=== PATIENT | male | born 2000 | race Two or more races ===

== ENCOUNTER 2025-04-17 09:47 | Emergency (ER) | payer MEDICAID, SELFPAY ==
[2025-04-17 09:47] VITALS: BMI 31.7
[2025-04-17 09:57] VITALS: BP 161/83; PULSE 61; RESP 16; TEMP 37.1; O2SAT 98; BMI 29.9
--- NOTE | 2025-04-17 10:42 | EDNOTE_ITS ---
ED Wound/Laceration-RME/HPI General Chief Complaint: Wound/Laceration Stated Complaint: CUT ON L HAND SINCE YESTERDAY Time Seen by Provider: 04/17/25 09:54 Source: patient Arrival date/time: 04/17/25 09:47 24-year-old male with no known medical history presents to the emergency room with a chief complaint of a laceration to his left hand that occurred yesterday afternoon. Mode of arrival: ambulatory Limitations: no limitations Related Data Allergies Allergy/AdvReac Type Severity Reaction Status Date / Time NKA Allergy Unknown Uncoded 04/17/25 09:50 No Known Allergies Allergy Uncoded 04/17/25 09:50 Review of Systems Review of Systems Systems Reviewed: All systems reviewed, normal except as documented Constitutional Constitutional: Reports system reviewed and no additional complaints, except as documented, Denies fatigue, Denies fever(s), Denies headache(s) and Denies weakness Eyes Eyes: Reports system reviewed and no additional complaints, except as documented, Denies blurry vision and Denies change in vision ENT Ears, Nose, Mouth, and Throat: Reports system reviewed and no additional complaints, except as documented, Denies otalgia, Denies headache(s), Denies nasal congestion, Denies throat swelling and Denies vertigo Cardiovascular Cardiovascular: Reports system reviewed and no additional complaints, except as documented, Denies chest pain, Denies dyspnea and Denies dyspnea on exertion Respiratory Respiratory: Reports system reviewed and no additional complaints, except as documented, Denies chest congestion, Denies cough, Denies dyspnea, Denies dyspnea on exertion and Denies wheezing Gastrointestinal Gastrointestinal: Reports system reviewed and no additional complaints, except as documented, Denies abdominal pain, Denies cramping, Denies nausea and Denies vomiting Genitourinary Genitourinary: Reports system reviewed and no additional complaints, except as documented, Denies dysuria and Denies hematuria Musculoskeletal Musculoskeletal: Reports system reviewed and no additional complaints, except as documented and Denies back pain Integumentary/Breasts Skin/Breast: Reports system reviewed and no additional complaints, except as documented and Reports wounds Neurologic Neurologic: Reports system reviewed and no additional complaints, except as documented, Denies confusion, Denies headache(s), Denies lack of coordination, Denies vertigo and Denies weakness Psychiatric Psychiatric: Reports system reviewed and no additional complaints, except as documented, Denies anxiety, Denies confusion, Denies depression, Denies paranoia, Denies suicidal ideation and Denies tactile hallucinations Endocrine Endocrine: Reports system reviewed and no additional complaints, except as documented and Denies fatigue Hematologic/Lymphatic Hematologic/Lymphatic: Reports system reviewed and no additional complaints, except as documented and Denies lymphadenopathy Allergic/Immunologic Allergic/Immunologic: Reports system reviewed and no additional complaints, except as documented, Denies throat swelling, Denies urticaria and Denies wheezing Past Medical History Social History SMOKING STATUS: Never smoker ED Exam General Limitations: Present no limitations General appearance: Present alert and in no apparent distress Head Head exam: Present atraumatic Eye Eye exam: Present normal appearance, PERRL and EOMI ENT ENT exam: Present normal exam, normal oropharynx and mucous membranes moist Neck Neck exam: Present normal inspection, full ROM and trachea midline Chest Chest inspection: Present normal inspection and symmetric chest wall rise Respiratory Respiratory exam: Present normal lung sounds bilaterally Cardiovascular Cardiovascular exam: Present regular rate, normal rhythm and normal heart sounds Abdominal Exam Abdominal exam: Present soft and normal bowel sounds Extremities Exam Extremities exam: Present normal inspection and full ROM Expanded Upper Extremity Exam Shoulder exam: Present normal inspection Arm exam: Present normal inspection Elbow exam: Present normal inspection Forearm/Wrist exam: Present normal inspection Hand exam: Present laceration Hand L/R back image: 2 1. 0.5 cm superficial laceration Vascular exam: Normal capillary refill Back Exam Back exam: Present normal inspection and full ROM Neurological Exam Neurological exam: Present alert, oriented X3 and CN II-XII intact Psychiatric Psychiatric exam: Present normal affect and normal mood Skin Skin exam: Present warm, dry, intact and normal color Course Quality Measures none Vital Signs Vital signs: Vital Signs Temperature 98.8 F 04/17/25 09:57 Pulse Rate 61 04/17/25 09:57 Respiratory Rate 16 04/17/25 09:57 Blood Pressure 161/83 H 04/17/25 09:57 Pulse Oximetry (%) 98 04/17/25 09:57 Oxygen Delivery Method Room Air 04/17/25 09:57 Wound / Laceration MDM Narrative MDM Narrative:: 24-year-old male with no known medical history presents to the emergency room with a chief complaint of a laceration to his left hand that occurred yesterday afternoon. Patient is hemodynamically stable and in no apparent distress Physical examination shows 0.5 cm laceration to the left hand between the 1st and 2nd digit. The wound is very superficial and does not need sutures. The wound was closed and approximated with Dermabond and Steri-Strips. This injury occurred yesterday around 8 PM. The wound is not erythemic there is no discharge or any signs of infection. Patient states tetanus is up-to-date Patient was discharged and educated to follow-up with primary care provider in the next 24 to 48 hours and return to the emergency room for any evidence of worsening signs or symptoms Patient data External records reviewed:: [facility] previous records Clinical information provided by:: patient Social determinants that could affect healthcare access:: none Patient has the following chronic illnesses:: No chronic illness How is presenting disease/condition affected by chronic disease/condition?: no chronic disease Evaluation data The following diagnostics were reviewed and interpreted by me:: lab results and radiology exam(s) Lab and/or radiology exams considered but not ordered:: Labs and radiology exams considered and ordered Interpretation Summary: N/A Medications / Prescriptions Medications or Prescriptions considered but not ordered:: No medication given Medication administrations:: No medication given Consultations Consultation(s) initiated? (list below): No Diagnosis Wound Differential Diagnosis: laceration, abscess and avulsion of skin Most likely diagnosis given after review of the tests above:: Laceration Admission Indicated Admission indicated?: not indicated Admission Request Was there a request for admission?: No Disposition Plan Disposition Plan: Discharge Discharge Attestation Discharge Attestation: The patient and all family members were given an opportunity to ask questions and understood the discharge instructions. Discharge instructions specifically effects, indications for sooner follow up or return to the emergency department, and the expected course of current diagnosis. Patient condition: Stable Discharge Plan Plan Patient Disposition: HOME (Self Care) Discharge Disposition comment: Stable Prescriptions/Referrals Referrals: No Primary/Family,Physician [Primary Care Provider] - In 1 week Problem List Clinical Impression: Laceration Patient/Caregiver Discharge Instructions Additional Instructions: Please follow-up with your primary care provider in the next 24 to 48 hours. The glue and Steri-Strips were used to close and approximate the wound For any evidence of worsening signs or symptoms return to the emergency room immediately Print Language: Faroese Stand Alone Forms: Susu Award Info., Patient Portal Info Letter PA/CLARITA Supervising Physician PA/CLARITA Supervising Physician: Dr. Gonzalez
== END 2025-04-17 11:38 | disposition home or self-care (01) ==
PROVIDERS: Emergency Provider Family Medicine
DX: S61.412A Laceration without foreign body of left hand, initial encounter (principal); W45.8XXA Other foreign body or object entering through skin, initial encounter
CPT/HCPCS: 99281